=== PATIENT | female | born 1965 | race Caucasian/White ===

== ENCOUNTER 2023-06-18 23:42 | Inpatient (IN) | payer BC ==
[~2023-06-18] VITALS: Ht 157.5 cm; Wt 72.7 kg
[2023-06-19 00:31] LABS: URINE HCG NEGATIVE (NEG)
[2023-06-19 00:36] LABS: BILIRUBIN,URINE NEGATIVE (Neg); CLARITY,URINE SLIGHTLY CLOUDY (Clear); COLOR,URINE YELLOW (Yellow); GLUCOSE, URINE NEGATIVE (Neg); KETONES,URINE 40 mg/dl (Neg); LEUKOCYTE ESTERASE ,URINE TRACE (Neg); NITRITES, URINE NEGATIVE (Neg); OCCULT BLOOD,URINE LARGE (Neg); PROTEIN,URINE 100 mg/dl (Neg); UROBILINOGEN,URINE 0.2 E.U/dL (0.2-1.0)
[2023-06-19 00:46] LABS: UA COLLECTION TYPE CLN CATCH MIDSTREAM
[2023-06-19 00:48] LABS: BASOPHILS # (AUTO) 0.1 X10'3 (0-0.2); BASOPHILS % (AUTO) 0.4 % (0-1); EOSINOPHILS % (AUTO) 0.3 % (0-6); HEMATOCRIT 44.8 % (35.0-45.0); HEMOGLOBIN 15.1 g/dl (12.0-16.0); LYMPHOCYTES # (AUTO) 1.5 X10'3 (1.1-4.8); LYMPHOCYTES % (AUTO) 11.4 % (21-51); MEAN CORPUSCULAR HEMOGLOBIN 30.9 PG (27.0-31.0); MEAN CORPUSCULAR HGB CONC 33.7 g/dL (33.0-36.5); MEAN CORPUSCULAR VOLUME 91.7 FL (78-98); MEAN PLATELET VOLUME 7.3 FL (7.4-10.4); MONOCYTES # (AUTO) 0.8 X10'3 (0-0.9); MONOCYTES % (AUTO) 6.3 % (2-12); NEUTROPHILS # (AUTO) 10.9 X10'3 (1.8-7.7); NEUTROPHILS % (AUTO) 81.6 % (42-75); PLATELET COUNT 325 X10'3 (140-440); RED BLOOD COUNT 4.89 X10'6 (4.20-5.60); RED CELL DISTRIBUTION WIDTH 12.9 % (11.5-14.5); WHITE BLOOD COUNT 13.3 X10'3 (4.5-11.0)
[2023-06-19 00:52] LABS: BACTERIA,URINE 1+ /HPF (Neg); MUCUS STRANDS NONE SEEN /LPF (Neg); RBC,URINE TNTC /HPF (0-2); SQUAMOUS EPITHELIAL CELL,UR NONE SEEN /LPF (FEW)
[2023-06-19 00:54] LABS: AMORPHOUS PHOSPHATES 1+
[2023-06-19 00:54] LABS: ANION GAP 6 (8-16); BLOOD UREA NITROGEN 16 MG/DL (7-18); CHLORIDE 97 MMOL/L (99-107); GLUCOSE 165 MG/DL (70-104); POTASSIUM 3.6 MMOL/L (3.5-5.1); SODIUM 134 MMOL/L (135-145)
[2023-06-19 00:55] LABS: ALANINE AMINOTRANSFERASE 30 U/L (12-78); ALBUMIN 4.4 G/DL (3.4-5.0); ALBUMIN/GLOBULIN RATIO 1.1 (1.1-1.5); ALKALINE PHOSPHATASE 81 IU/L (46-116); ASPARTATE AMINO TRANSFERASE 28 U/L (10-37); BILIRUBIN,TOTAL 0.6 MG/DL (0.1-1.0); BUN/CREATININE RATIO 13.3 (10.0-20.0); CALCIUM 10.1 MG/DL (8.5-10.1); TOTAL PROTEIN 8.5 G/DL (6.4-8.2); eCRCL 40 ML/MIN; eGFR 46 ML/MIN
[2023-06-19] MEDS ORDERED: ondansetron 4mg rapidly disintigrating tab PO ONE (02:15)
[2023-06-19] MEDS ORDERED: ketorolac trometh inj. 60 MG/2 ML VIAL IM ONE (02:15)
[2023-06-19] MEDS ORDERED: CefTRIAXone 1000mg IM Kit (w/lidocaine diluent) IM ONE (06:20)
[2023-06-19] MEDS ORDERED: CefTRIAXone/D5W-Rocephin 1gm 50 ML IV ONE (06:25)
[2023-06-19] MEDS ORDERED: ringers solution, lacted 1,000 ML IV ONE (06:45)
--- NOTE | 2023-06-19 07:00 | NUR ---
requested rn to give iv abx
[2023-06-19 09:04] LABS: APTT 27 SECONDS (22-32); PROTHROMBIN TIME 10.5 SECONDS (9.0-12.0)
[2023-06-19] MEDS ORDERED: ondansetron/PF 4mg/2ml inj IV PRN (12:30)
[2023-06-19] MEDS ORDERED: acetaminophen 325mg tablet PO PRN (12:30)
[2023-06-19] MEDS ORDERED: HYDROcodone/acetaminophen 5mg/325mg tablet PO PRN (12:30)
[2023-06-19] MEDS ORDERED: morphine 2 MG/ML inj. syringe IV PRN ×2 (12:30)
[2023-06-19] MEDS ORDERED: magnesium Cl slow-release 64mg tablet PO PRN (12:30)
[2023-06-19] MEDS ORDERED: HYDROcodone/acetaminophen 10/325mg tab PO PRN (12:30)
[2023-06-19] MEDS ORDERED: magnesium hydroxide 30ml (MOM) UD suspension PO PRN (12:30)
[2023-06-19] MEDS ORDERED: mag hydrox/Alum hydrox/simeth 30ml oral suspension PO PRN (12:30)
[2023-06-19] MEDS ORDERED: potassium Cl 20 mEq SR tablet PO PRN ×2 (12:30)
[2023-06-19] MEDS ORDERED: normal saline 500ml IV soln 500 ML IV ONE (12:45)
[2023-06-19] MEDS ORDERED: NO HOME MEDS (13:05)
[2023-06-19] MEDS: normal saline 1000ml 1,000 ML IV SCH ×3 (13:59→22:30)
[2023-06-19 14:39] LABS: CHOL/HDL RATIO 4.5 (0.00-4.99); CHOLESTEROL 205 MG/DL (0-200); HDL CHOLESTEROL 46 MG/DL (35-60); LDL CHOLESTEROL 138 MG/DL (50-100); POTASSIUM 3.8 MMOL/L (3.5-5.1); TRIGLYCERIDES 99 MG/DL (20-135)
--- NOTE | 2023-06-19 14:47 | NUR ---
Report to charge nurse, who is going to have an SNUBBER come in. Called dietary who will send tray in 15 min, stated. No pain, N/V/D at this time. VSS.
--- NOTE | 2023-06-19 14:48 | NUR ---
Dr. Veronica aware no Mg lab ordered, [facility] WAS ADEQUATE. SEE LABS, SR. VSS, AFEBRILE.
--- NOTE | 2023-06-19 18:28 | NUR ---
Patient aware she is to be NPO at midnight for procedure tomorrow.
[2023-06-19] MEDS ORDERED: DEXTROSE 15 GM of carb/4 tabs (each vial/BOTTLE has 4 tablets) PO PRN ×2 (20:20)
[2023-06-19] MEDS ORDERED: glucagon, human recombinant 1mg kit SUBCUT PRN (20:20)
[2023-06-19] MEDS ORDERED: MESSAGE TO PHARMACY PO ONE (20:20)
[2023-06-19] MEDS ORDERED: insulin Lispro (HumaLOG) vial - multi-dose SQ SCH (20:20)
[2023-06-19] MEDS ORDERED: dextrose 50%-water 50ml dispensing syringe IV PRN ×2 (20:20)
[2023-06-19] MEDS ORDERED: insulin glargine (Lantus) pen - multi-dose SQ SCH (21:00)
[2023-06-19 22:00] VITALS: BP 138/56; PULSE 51; RESP 16; TEMP 97.8; O2SAT 96
--- NOTE | 2023-06-19 22:00 | NUR ---
CALLED PCU FLOOR TO GIVE REPORT TO RECEIVING NURSE. INSTRUCTED THAT THEY WILL CALL BACK WHEN RECEIVING NURSE IS DONE WITH PROCEDURE.
--- NOTE | 2023-06-19 23:02 | NUR ---
Received patient from ER via wheelchair @2220. Patient ambulated self to bed, oriented to room and equipment. BLL, sr up x2, call lord in reach, VSS, afebrile, telemetry initiated. Patient without any complaints.
[2023-06-20 02:00] VITALS: BP 126/60; PULSE 68; RESP 18; TEMP 97; O2SAT 95
[2023-06-20] MEDS: normal saline 1000ml 1,000 ML IV SCH ×2 (05:32→12:30)
[2023-06-20 06:00] VITALS: BP 132/76; PULSE 65; RESP 18; TEMP 97.7; O2SAT 95
--- NOTE | 2023-06-20 06:20 | NUR ---
Patient in room PCU 3024. I have received report from ELÍAS León and had the opportunity to ask questions and assume patient care.
--- NOTE | 2023-06-20 06:24 | NUR ---
Patient report given, questions answered & plan of care reviewed with ELÍAS Pendleton
[2023-06-20] MEDS: CefTRIAXone/D5W-Rocephin 1gm 50 ML IV SCH (07:30)
[2023-06-20 07:56] LABS: BASOPHILS % (AUTO) 0.8 % (0-1); EOSINOPHILS # (AUTO) 0.2 X10'3 (0-0.9); EOSINOPHILS % (AUTO) 3.6 % (0-6); HEMATOCRIT 37.9 % (35.0-45.0); HEMOGLOBIN 12.9 g/dl (12.0-16.0); LYMPHOCYTES # (AUTO) 2.3 X10'3 (1.1-4.8); LYMPHOCYTES % (AUTO) 39.6 % (21-51); MEAN CORPUSCULAR HEMOGLOBIN 31.4 PG (27.0-31.0); MEAN CORPUSCULAR HGB CONC 33.9 g/dL (33.0-36.5); MEAN CORPUSCULAR VOLUME 92.6 FL (78-98); MEAN PLATELET VOLUME 7.7 FL (7.4-10.4); MONOCYTES # (AUTO) 0.6 X10'3 (0-0.9); MONOCYTES % (AUTO) 10.3 % (2-12); NEUTROPHILS # (AUTO) 2.7 X10'3 (1.8-7.7); NEUTROPHILS % (AUTO) 45.7 % (42-75); PLATELET COUNT 285 X10'3 (140-440); RED BLOOD COUNT 4.09 X10'6 (4.20-5.60); RED CELL DISTRIBUTION WIDTH 13.2 % (11.5-14.5); WHITE BLOOD COUNT 5.9 X10'3 (4.5-11.0)
[2023-06-20 08:22] LABS: ALANINE AMINOTRANSFERASE 23 U/L (12-78); ALBUMIN 3.1 G/DL (3.4-5.0); ALKALINE PHOSPHATASE 60 IU/L (46-116); ANION GAP 7 (8-16); ASPARTATE AMINO TRANSFERASE 22 U/L (10-37); BILIRUBIN,TOTAL 0.3 MG/DL (0.1-1.0); BLOOD UREA NITROGEN 15 MG/DL (7-18); CALCIUM 8.7 MG/DL (8.5-10.1); CHLORIDE 107 MMOL/L (99-107); CREATININE 0.75 MG/DL (0.40-0.90); GLUCOSE 114 MG/DL (70-104); PHOSPHORUS 3.2 MG/DL (2.3-4.5); POTASSIUM 3.7 MMOL/L (3.5-5.1); SODIUM 140 MMOL/L (135-145); TOTAL CARBON DIOXIDE 26.4 MMOL/L (24-32); TOTAL PROTEIN 6.3 G/DL (6.4-8.2); eCRCL 65 ML/MIN; eGFR 79 ML/MIN
[2023-06-20 11:00] VITALS: BP 118/61; PULSE 51; RESP 19; TEMP 97.5; O2SAT 96
--- NOTE | 2023-06-20 11:56 | NUR ---
This entry writer called Dr. Olivia urologist office and L/M for MD to come do a consult on this pt. The hospitalist here at [facility] asked this entry writer to call. Kathryn the answering service for Dr Olivia took the message and stated she would relay the message to Dr. Olivia.
[2023-06-20 13:42] LABS: FREE T4 (FREE THYROXINE) 0.87 NG/DL (0.73-1.40)
[2023-06-20 17:21] VITALS: BP 129/61; PULSE 61; RESP 16; TEMP 97.8; O2SAT 96
[2023-06-20 18:00] VITALS: BP 135/69; PULSE 60; RESP 18; TEMP 97.6; O2SAT 97
--- NOTE | 2023-06-20 18:15 | NUR ---
Patient in room PCU 3024. I have received report from Keerthi MCKINLEY and had the opportunity to ask questions and assume patient care.
--- NOTE | 2023-06-20 18:18 | NUR ---
Problems reprioritized. Patient report given, questions answered & plan of care reviewed with ELÍAS Hodgson.
[2023-06-20 22:00] VITALS: BP 128/65; PULSE 68; RESP 18; TEMP 97.3; O2SAT 97
[2023-06-21 02:00] VITALS: BP 129/65; PULSE 65; RESP 18; TEMP 97.8; O2SAT 97
[2023-06-21] MEDS: normal saline 1000ml 1,000 ML IV SCH (04:45)
[2023-06-21 06:00] VITALS: BP 172/86; PULSE 63; RESP 16; TEMP 97.7; O2SAT 97
--- NOTE | 2023-06-21 06:15 | NUR ---
Problems reprioritized. Patient report given, questions answered & plan of care reviewed with Ella MCKINLEY.
[2023-06-21] MEDS ORDERED: levoTHYROXINE 25mcg tablet PO SCH (07:00)
[2023-06-21 07:32] LABS: BASOPHILS # (AUTO) 0.1 X10'3 (0-0.2); BASOPHILS % (AUTO) 0.9 % (0-1); EOSINOPHILS # (AUTO) 0.3 X10'3 (0-0.9); EOSINOPHILS % (AUTO) 5.3 % (0-6); HEMATOCRIT 40.1 % (35.0-45.0); HEMOGLOBIN 13.4 g/dl (12.0-16.0); LYMPHOCYTES # (AUTO) 2.9 X10'3 (1.1-4.8); MEAN CORPUSCULAR HEMOGLOBIN 31.1 PG (27.0-31.0); MEAN CORPUSCULAR HGB CONC 33.3 g/dL (33.0-36.5); MEAN CORPUSCULAR VOLUME 93.2 FL (78-98); MEAN PLATELET VOLUME 7.3 FL (7.4-10.4); MONOCYTES # (AUTO) 0.6 X10'3 (0-0.9); MONOCYTES % (AUTO) 8.8 % (2-12); NEUTROPHILS # (AUTO) 2.7 X10'3 (1.8-7.7); PLATELET COUNT 296 X10'3 (140-440); RED CELL DISTRIBUTION WIDTH 13.2 % (11.5-14.5); WHITE BLOOD COUNT 6.6 X10'3 (4.5-11.0)
[2023-06-21] MEDS: CefTRIAXone/D5W-Rocephin 1gm 50 ML IV SCH (07:39)
[2023-06-21 07:48] LABS: ALANINE AMINOTRANSFERASE 24 U/L (12-78); ALBUMIN 3.4 G/DL (3.4-5.0); ALBUMIN/GLOBULIN RATIO 0.9 (1.1-1.5); ALKALINE PHOSPHATASE 64 IU/L (46-116); ANION GAP 5 (8-16); ASPARTATE AMINO TRANSFERASE 21 U/L (10-37); BILIRUBIN,TOTAL 0.3 MG/DL (0.1-1.0); BLOOD UREA NITROGEN 12 MG/DL (7-18); CALCIUM 9.1 MG/DL (8.5-10.1); CHLORIDE 105 MMOL/L (99-107); GLUCOSE 108 MG/DL (70-104); PHOSPHORUS 3.4 MG/DL (2.3-4.5); POTASSIUM 3.7 MMOL/L (3.5-5.1); SODIUM 140 MMOL/L (135-145); TOTAL CARBON DIOXIDE 30.1 MMOL/L (24-32); eCRCL 61 ML/MIN; eGFR 74 ML/MIN
[2023-06-21 11:36] VITALS: BP 178/75; PULSE 63; RESP 9; TEMP 97.9; O2SAT 96
[2023-06-21] MEDS ORDERED: LEVO25TA7 PO (13:08)
[2023-06-21] MEDS ORDERED: LACT1CAP26 PO (13:08)
[2023-06-21] MEDS ORDERED: CEFD300C3 PO (13:08)
[2023-06-21 14:26] VITALS: RESP 16; O2SAT 95
--- NOTE | 2023-06-21 15:41 | NUR ---
Pt stable for discharge per Dr. Herman. All discharge instructions reviewed with patient and all questions answered, pt verbalized understanding. New medications e-scripted to Carlos in [place]. PIV discontinued, cannula intact. Tele discontinued. All belongings collected and sent with patient. Wheeled to lobby via nursing staff and drove home .
== END 2023-06-21 14:17 | disposition home or self-care (01) | DRG 690 ==
LOC: ER 23:43 → ED HOLD 06-19 13:49 → PCU 3S 06-19 22:20
PROVIDERS: ADMIT Family Medicine; ATTEND Family Medicine
DX: N13.6 Pyonephrosis (principal); I10 Essential (primary) hypertension; E11.9 Type 2 diabetes mellitus without complications; E78.5 Hyperlipidemia, unspecified; K57.30 Diverticulosis of large intestine without perforation or abscess without bleeding; E04.1 Nontoxic single thyroid nodule; E03.9 Hypothyroidism, unspecified; G43.909 Migraine, unspecified, not intractable, without status migrainosus; Z98.82 Breast implant status; Z87.442 Personal history of urinary calculi; Z91.148 Patient's other noncompliance with medication regimen for other reason
CPT/HCPCS: 36415; 74176; 76536; 80053; 80061; 81001; 81025; 82948; 83036; 83605; 83735; 84100; 84132; 84439; 84443; 85025; 85610; 85730; 87040; 87081; 87088; 96365; 96372; 99285; G0378; J0696; J1815; J1885; J7030; J7040; J7120